=== PATIENT | female | born 1965 | race Asian ===

== ENCOUNTER 2021-01-11 07:43 | Emergency (ER) | payer BC, OTHER ==
[2021-01-11 08:11] VITALS: TEMP 99; BMI 26.4
[2021-01-11] MEDS ORDERED: SODIUM CHLORIDE 1,000 ML IV STA (08:37)
[2021-01-11] MEDS ORDERED: METOCLOPRAMIDE HCL INJECTION 10 MG/2 ML VIAL IVPB ONE (08:37)
[2021-01-11] MEDS ORDERED: MECLIZINE HCL 25 MG TABLET (FP) PO ONE (08:37)
[2021-01-11] MEDS ORDERED: MECLIZINE HCL 12.5 MG TABLET ONE (08:46)
[2021-01-11] MEDS ORDERED: METOCLOPRAMIDE HCL INJECTION 10 MG/2 ML VIAL ONE (08:47)
[2021-01-11 09:34] LABS: BASO % 0.8 % (0-2.0); EOS % 1.3 % (0-4.5); HEMATOCRIT 36.1 % (32.4-45.2); HEMOGLOBIN 12.1 GM/dL (10.7-15.3); LYMPH % 17.5 % (8-40); MCH 28.4 pg (25.7-33.7); MCHC 33.6 g/dl (32.0-36.0); MEAN CELL VOLUME 84.3 fl (80-96); MEAN PLT VOLUME 9.1 fl (7.5-11.1); MONO % 4.7 % (3.8-10.2); NEUT % 75.7 % (42.8-82.8); PLATELET COUNT 237 10^3/uL (134-434); RBC 4.28 M/mm3 (3.60-5.2); RDW 14.1 % (11.6-15.6); WHITE BLOOD COUNT 8.4 K/mm3 (4.0-10.0)
[2021-01-11 09:57] LABS: CHLORIDE 104 mmol/L (98-107); SODIUM 138 mmol/L (136-145)
[2021-01-11 09:59] LABS: CALCIUM 8.9 mg/dL (8.5-10.1)
[2021-01-11 10:00] LABS: ANION GAP 8 MMOL/L (8-16); BLOOD UREA NITROGEN 16.5 mg/dL (7-18); CO2 26 mmol/L (21-32); GLUCOSE,RANDOM 100 mg/dL (74-106)
[2021-01-11 10:03] LABS: SGOT/AST 21 U/L (15-37); SGPT/ALT 45 U/L (13-61)
[2021-01-11 10:04] LABS: BILIRUBIN,TOTAL 0.6 mg/dL (0.2-1)
[2021-01-11 10:05] LABS: TOT PROT 8.4 g/dl (6.4-8.2)
[2021-01-11 10:06] LABS: ALK PHOS 89 U/L (45-117)
[2021-01-11 11:06] VITALS: BP 121/72; PULSE 65
== END 2021-01-11 11:06 | disposition home or self-care (01) ==
LOC: JER 07:43
PROC: 3E033GC Introduction of Other Therapeutic Substance into Peripheral Vein, Percutaneous Approach (ICD-10-PCS; principal; 2021-01-11)
DX: R42 Dizziness and giddiness (principal); R11.2 Nausea with vomiting, unspecified
CPT/HCPCS: 36415; 80053; 82550; 82553; 84484; 85025; 93005; 93010; 99284-25; C9803; U0003; U0005